=== PATIENT | female | born 1985 | race Caucasian/White ===

== ENCOUNTER → 2017-07-31 | Outpatient (REF) ==
[2015-09-13 09:41] VITALS: BMI 35.4
[~2017-07-31] MED LIST: ACET-1718 PO; CALC-515 PO; DOCO200C PO; DOXY-1 PO; FERR-41 PO; IBUP800T37 PO; LEVO-3 PO; PRE20 PO; PRED20TA6 PO; birth control
[2017-07-31 09:29] LABS: LDL CHOLESTEROL 58 mg/dl
== END ==
DX: Z02.9 Encounter for administrative examinations, unspecified (principal)

== ENCOUNTER → 2017-08-19 | Outpatient (CLI) | payer OTHER ==
[2015-09-13 09:41] VITALS: BMI 35.4
== END ==
LOC: LAB 07:54
PROVIDERS: ATTEND Internal Medicine
DX: O99.281 Endocrine, nutritional and metabolic diseases complicating pregnancy, first trimester (principal); E03.9 Hypothyroidism, unspecified
CPT/HCPCS: 36415; 84439; 84443